=== PATIENT | female | born 1990 | race Caucasian/White ===

== ENCOUNTER 2020-03-15 06:33 | Day surgery (SDC) | payer OTHER, SELFPAY ==
[~2020-03-15] VITALS: Ht 147.3 cm; Wt 61.2 kg
[2020-03-15] MEDS ORDERED: MIDAZOLAM 2 MG/2 ML VIAL ONE (07:36)
[2020-03-15] MEDS ORDERED: fentaNYL citrate 0.05 MG/ML VIAL ONE (07:36)
[2020-03-15] MEDS ORDERED: MIDAZOLAM 2 MG/2 ML VIAL IVP SCH (09:00)
== END 2020-03-15 08:59 | disposition home or self-care (01) ==
LOC: MDS 06:33 → MFCC 06:34 → MDS 08:59
PROVIDERS: ATTEND Internal Medicine Gastroenterology
DX: R10.13 Epigastric pain (principal); F41.9 Anxiety disorder, unspecified; F32.9 Major depressive disorder, single episode, unspecified; Z88.1 Allergy status to other antibiotic agents; Z79.899 Other long term (current) drug therapy
CPT/HCPCS: 36415; 43239; 86677; 87426; J2250; J3010